=== PATIENT | female | born 1985 | race Caucasian/White ===

== ENCOUNTER 2017-04-01 15:00 | Emergency (ER) | payer OTHER ==
[2017-04-01 15:12] VITALS: BP 113/60
[2017-04-01] MEDS ORDERED: Lidocaine 2.5%/Prilocain 2.5%* 5 GM TUBE TOPICAL ONE (16:16)
[2017-04-01] MEDS ORDERED: Tetan/Diph/Pertus SYR(Tdap)* 0.5 ML SYR(BOOSTRIX) use SYR IM ONE (16:16)
--- NOTE | 2017-04-01 16:54 | RAD ---
INDICATION: Left index finger injury. TECHNIQUE: 3 views of the left index finger were obtained. FINDINGS: The bones are normal alignment. No fracture is seen. Joint spaces appear maintained. IMPRESSION: NO EVIDENCE FOR FRACTURE.
--- NOTE | 2017-04-01 19:03 | UC ---
Reggie Licea Aidan, scribed for Lexi Murray MD on 04/01/17 at 1627 . Hand/Wrist HPI - HPI Summary HPI Summary: 31 y/o female presents to the Urgent Care with an acute, constant, moderate, irregularly-shaped laceration to the left index finger that resulted from her crushing her finger on a chair or cabinet yesterday. Associated pain was reported to be 10/10 at the time, according to the patient. She is unaware of whether or not she broke the finger. Associated symptoms include mild swelling of the left index finger. She is unaware of when her last tetanus shot was. Dominant hand is right. - History Of Current Complaint Chief Complaint: UCLaceration Stated Complaint: FINGER LAC Time Seen by Provider: 04/01/17 16:02 Hx Obtained From: Patient Hx Last Menstrual Period: 01/22/17 ?: No Onset/Duration: Sudden Onset, Lasting Hours, Still Present Severity Initially: Moderate Severity Currently: Moderate Pain Intensity: 10 - per nurse's note Pain Scale Used: 0-10 Numeric Character Of Pain: Sharp Aggravating Factor(s): Other - unknown Alleviating: Other - unknown Associated Signs And Symptoms: Positive: Swelling - left index finger - Risk Factors Compartment Syndrome Risk Factors: Pain - Allergies/Home Medications Allergies/Adverse Reactions: Allergies Allergy/AdvReac Type Severity Reaction Status Date / Time No Known Allergies Allergy Verified 04/01/17 15:13 PMH/Surg Hx/FS Hx/Imm Hx Previously Healthy: Yes Respiratory History: Asthma Other History Of: Negative For: HIV, Hepatitis B, Hepatitis C, Anticoagulant Therapy - Surgical History Surgical History: Yes Surgery Procedure, Year, and Place: D&C. essure procedure - Family History Known Family History: Negative: Cardiac Disease, Hypertension, Diabetes - Social History Occupation: Employed Full-time Lives: Alone Alcohol Use: Rare Substance Use Type: None Smoking Status (MU): Never Smoked Tobacco Have You Smoked in the Last Year: No - Immunization History Most Recent Influenza Vaccination: UNK Most Recent Tetanus Shot: UTD Most Recent Pneumonia Vaccination: NONE Review of Systems Constitutional: Negative Skin: Other - laceration to left index finger with associated swelling Eyes: Negative ENT: Negative Respiratory: Negative Cardiovascular: Negative Gastrointestinal: Negative Genitourinary: Negative Motor: Negative Neurovascular: Negative Musculoskeletal: Negative Neurological: Negative Psychological: Negative All Other Systems Reviewed And Are Negative: Yes Physical Exam Triage Information Reviewed: Yes Appearance: Well-Nourished Vital Signs: Initial Vital Signs Temp 99.2 F 04/01/17 15:09 Pulse 104 04/01/17 15:09 Resp 18 04/01/17 15:09 BP 113/60 04/01/17 15:09 Pulse Ox 100 04/01/17 15:09 Vital Signs Reviewed: Yes Eye Exam: Normal ENT Exam: Normal ENT: Positive: Normal ENT inspection Respiratory Exam: Normal, Other - no dispnea, no tachypnea, normal respiratory rate Cardiovascular Exam: Normal, Other - good general skin color Cardiovascular: Positive: RRR, Brisk Capillary Refill Abdominal Exam: Normal Abdomen Description: Positive: Nontender, Soft Bowel Sounds: Positive: Present Musculoskeletal: Positive: Strength Intact, Other: - Generalized tenderness on the first proximal phalanx. Distal sensation present to light touch cap refill less than 2 seconds, able to bend and straighten finger but pain and swelling limit full flexion Neurological Exam: Normal, Other - nonfocal, grossly intact Neurological: Positive: Alert Psychological Exam: Normal Psychological: Positive: Age Appropriate Behavior Skin Exam: Other - 0.6cm by 0.2cm irregular shaped laceration, depth unclear, 0.2cm as visible, however, suspect deeper. Macerated area periwound, in the pattern of a bandaid. No active bleeding. Distal LT sensation present. CR good. Able to bend but painful 2/2 swelling. Diagnostics - Radiology FINGER X-RAY Xray Interpretation: No Acute Changes - IMPRESSION: No evidence for fracture Radiology Interpretation Completed By: Radiologist Hand/Wrist Course/Dx - Course Course Of Treatment: Ring was removed via emla and gauze. Ring had been contributing to some bottle neck. Xray noted, d/w pt. Splint and bandage applied by RN. Work noteuntil tuesday. Questions answered as posed. Reviewed coa / wound care with pt - Differential Dx/Diagnosis Provider Diagnoses: crush injury. finger laceration, non suturable. Boostrix here. Discharge - Discharge Plan Condition: Stable Disposition: HOME Discharge Disposition Comment: Please follow up with your primary care provider within 3 days. Prescriptions: Ibuprofen TAB* [Motrin TAB* 600 MG] 600 mg PO Q8H PRN #30 tab PRN Reason: Pain Iwtlrbxo-Mvzqkgektv-Oqhfbyqxa [Triple Antibiotic] 1 oin EX BID #1 tube Patient Education Materials: Diphtheria/Pertussis/Tetanus Vaccine (By injection ), Jammed Finger (ED), Laceration Without Closure (ED), Crush Injury (ED) Forms: *Work Release Referrals: Chely Martinez STEAM BOX OPERATOR [Primary Care Provider] - Additional Instructions: Splint as needed for comfort - ok to remove at night and to shower. Recommend use the splint for the next 3- 4 days, and then as needed afterwards. Cut - THIN layer of bacitracin 2x / day, light bandaid or bandage - do not "lock" the moisture in. Seek medical attention for worse or new problems. You had your tetanus booster today. The documentation as recorded by the Reggie chopra Aidan accurately reflects the service I personally performed and the decisions made by me, Lexi Murray MD.
== END 2017-04-01 17:42 | disposition home or self-care (01) ==
LOC: UCEAST 15:00
DX: S61.211A Laceration without foreign body of left index finger without damage to nail, initial encounter (principal); W23.0XXA Caught, crushed, jammed, or pinched between moving objects, initial encounter; Y93.9 Activity, unspecified; Y92.9 Unspecified place or not applicable; Z23 Encounter for immunization; J45.909 Unspecified asthma, uncomplicated
CPT/HCPCS: 73140; 90472; 90715; 99213; A9270-GY; G0463

== ENCOUNTER 2017-07-01 13:03 | Emergency (ER) | payer OTHER ==
[2017-07-01 14:05] VITALS: BP 115/69
[2017-07-01] MEDS ORDERED: Ketorolac INJ* 30 MG/ML 1 ML VIAL IM ONE (14:57)
--- NOTE | 2017-07-01 14:59 | UC ---
Truncal Trauma HPI - HPI Summary HPI Summary: pt reports that she has bilateral rib and side soreness and pain. 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 Denies trauma or injury Pt is requesting work note - History Of Current Complaint Chief Complaint: UCUpperExtremity Stated Complaint: BILATERAL RIB PAIN Time Seen by Provider: 07/01/17 14:52 Hx Obtained From: Patient Hx Last Menstrual Period: 05/03/17 essure ?: No Onset/Duration: Gradual Onset, Still Present Severity Initially: Mild Severity Currently: Mild Mechanism Of Injury: Unknown Aggravating Factor(s): Movement Alleviating factor(s): Rest Associated Signs And Symptoms: Positive: Negative - Allergies/Home Medications Allergies/Adverse Reactions: Allergies Allergy/AdvReac Type Severity Reaction Status Date / Time No Known Allergies Allergy Verified 07/01/17 14:05 PMH/Surg Hx/FS Hx/Imm Hx Previously Healthy: Yes Other History Of: Negative For: HIV, Hepatitis B, Hepatitis C, Anticoagulant Therapy - Surgical History Surgical History: Yes Surgery Procedure, Year, and Place: D&C. essure procedure - Family History Known Family History: Negative: Cardiac Disease, Hypertension, Diabetes - Social History Occupation: Employed Full-time Lives: With Family Alcohol Use: Rare Substance Use Type: None Smoking Status (MU): Never Smoked Tobacco Have You Smoked in the Last Year: No - Immunization History Most Recent Influenza Vaccination: no Most Recent Tetanus Shot: UTD Most Recent Pneumonia Vaccination: NONE Review of Systems Constitutional: Negative Skin: Bruising - left anterior lower ribs Eyes: Negative ENT: Negative Respiratory: Negative Cardiovascular: Negative Gastrointestinal: Negative Genitourinary: Negative Motor: Decreased ROM - ribs and rib cage Neurovascular: Negative Musculoskeletal: Arthralgia - ribs and rib cage, Myalgia Neurological: Negative Psychological: Negative Is Patient Immunocompromised?: No All Other Systems Reviewed And Are Negative: Yes Physical Exam Triage Information Reviewed: Yes Appearance: Well-Appearing Vital Signs: Initial Vital Signs Temp 98.7 F 07/01/17 14:01 Pulse 64 07/01/17 14:01 Resp 14 07/01/17 14:01 BP 115/69 07/01/17 14:01 Pulse Ox 100 07/01/17 14:01 Vital Signs Reviewed: Yes Eye Exam: Normal Neck exam: Normal Respiratory Exam: Normal Cardiovascular Exam: Normal Abdominal Exam: Normal Abdomen Description: Positive: Nontender, Soft Musculoskeletal: Positive: ROM Limited @ - ribs, Other: - dime size bruises on left lower anterior ribs, generalized tendernes of ribcage, no sweling, creipitus or significant bruising. Neurological Exam: Normal Psychological Exam: Normal Skin Exam: Other - two small bruises left anterior lower rib cage. ~ rib 7 & 8 Truncal Trauma Course/Dx - Differential Dx/Diagnosis Differential Diagnosis/HQI/PQRI: Other - costochondritis overuse syndrome Provider Diagnoses: overuse syndrome. tendonitis. rib bruise Discharge - Discharge Plan Condition: Stable Disposition: HOME Prescriptions: Ibuprofen TAB* [Motrin TAB* 800 MG] 800 mg PO Q8H PRN #15 tab PRN Reason: Pain Patient Education Materials: Rib Contusion (ED) Forms: *Work Release Referrals: Chely Martinez NP [Primary Care Provider] - If Needed (Please follow up with your PCP as needed or return to clinic. )
== END 2017-07-01 15:14 | disposition home or self-care (01) ==
LOC: UCCORT 13:03
DX: S20.219A Contusion of unspecified front wall of thorax, initial encounter (principal); X50.0XXA Overexertion from strenuous movement or load, initial encounter; M77.9 Enthesopathy, unspecified
CPT/HCPCS: 96372; 99212; G0463; J1885

== ENCOUNTER 2017-07-23 18:09 | Emergency (ER) | payer OTHER ==
[2017-07-23 20:35] VITALS: BP 114/78
[2017-07-23] MEDS ORDERED: Sulfamethox/Trimethoprim DS 800/160* TAB PO ONE (20:57)
--- NOTE | 2017-07-23 21:52 | UC ---
Abdominal Pain Female HPI - HPI Summary HPI Summary: Patient presents to the with CC of abdominal pain at a 1/10 which is in bilateral lower quadrants. She denies is concerned d/t no menstrual cycle x 2 months. Denies chance of . She states she had a "procedure" but is unable to tell me what kind. Denies any vaginal bleeding or spotting. Denies N/ C/D/V. Denies urinary symptoms including back pain. Denies fevers, sweats or chills. She states she has been feeling otherwise well. - History of Current Complaint Chief Complaint: UCAbdominalPain Stated Complaint: STOMACH ACHE Time Seen by Provider: 07/23/17 20:13 Hx Obtained From: Patient Hx Last Menstrual Period: 04/2017 ?: No Onset/Duration: Sudden Onset Timing: Constant Severity Initially: Mild Severity Currently: Mild Pain Intensity: 7 Pain Scale Used: 0-10 Numeric Location: Discrete At: RLQ, Discrete At: LLQ Radiates: No Character: Unable to describe Aggravating Factor(s): Nothing Alleviating Factor(s): Nothing Associated Signs and Symptoms: Positive: Negative - Risk Factors Ectopic Risk Factor: Maternal Age ^ 30 Ovarian Torsion Risk Factor: Reproductive Age Allergies/Adverse Reactions: Allergies Allergy/AdvReac Type Severity Reaction Status Date / Time No Known Allergies Allergy Verified 07/23/17 18:45 PMH/Surg Hx/FS Hx/Imm Hx Previously Healthy: Yes Other History Of: Negative For: HIV, Hepatitis B, Hepatitis C, Anticoagulant Therapy - Surgical History Surgical History: Yes Surgery Procedure, Year, and Place: D&C. essure procedure - Family History Known Family History: Positive: None Negative: Cardiac Disease, Hypertension, Diabetes - Social History Occupation: Unemployed Lives: With Family Alcohol Use: Rare Substance Use Type: None Smoking Status (MU): Never Smoked Tobacco Have You Smoked in the Last Year: No - Immunization History Most Recent Influenza Vaccination: no Most Recent Tetanus Shot: UTD Most Recent Pneumonia Vaccination: NONE Review of Systems Constitutional: Negative Skin: Negative Respiratory: Negative Cardiovascular: Negative Gastrointestinal: Abdominal Pain - 1/10 in lower quadrants bilaterally - but unable to describe Motor: Negative Neurovascular: Negative Neurological: Negative Psychological: Negative Is Patient Immunocompromised?: No All Other Systems Reviewed And Are Negative: Yes Physical Exam Triage Information Reviewed: Yes Appearance: Well-Appearing, Well-Nourished Vital Signs: Initial Vital Signs Temp 97.8 F 07/23/17 18:42 Pulse 74 07/23/17 18:42 Resp 16 07/23/17 18:42 BP 112/67 07/23/17 18:42 Pulse Ox 100 07/23/17 18:42 Vital Signs Reviewed: Yes Eye Exam: Normal Eyes: Positive: Conjunctiva Clear Neck exam: Normal Neck: Positive: Supple, No Lymphadenopathy Respiratory Exam: Normal Respiratory: Positive: Chest non-tender Cardiovascular Exam: Normal Cardiovascular: Positive: RRR Musculoskeletal Exam: Normal Musculoskeletal: Positive: Strength Intact Neurological Exam: Normal Neurological: Positive: Alert, Muscle Tone Normal Psychological: Positive: Normal Response To Family Skin Exam: Normal Abd Pain Female Course/Dx - Course Course Of Treatment: Discussed with patient treatment options. UA with +3 leuks. She denies any symptoms currently, but is only concerned about no menstruation x 2 months. test negative. Denies urinary symptoms. Placed on bactrim for UTI and referred for OBGYN. Provider does not feel it necessary to perform more imaging, labs, etc d/t no symptoms currently. Patient agrees. - Differential Dx/Diagnosis Differential Diagnosis: Appendicitis, Bowel Obstruction, Constipation, Ovarian Cyst, , Urinary Tract Infection Provider Diagnoses: UTI Discharge - Discharge Plan Condition: Stable Disposition: HOME Prescriptions: Sulfamethox/Trimethoprim DS* [Bactrim DS 800/160 TAB*] 1 tab PO BID #10 tab MDD 2 Patient Education Materials: Urinary Tract Infection in Women (ED) Referrals: Rios Esquivel MD [Medical Doctor] - Chely Martinez NP [Primary Care Provider] - Additional Instructions: Follow up with your PCP Follow up with OBGYN immediately - I have given you a referral - you need to call on Tuesday morning to make an appt As discussed, you have a UTI Dx. Urinary Tract Infection Drink plenty of fluids. Supplement with cranberry or islas juice. You may also take an over the counter cranberry supplement. If you have any questions about this, you may ask your pharmacist. If your symptoms have not improved in 1-2 days, if you develop fever, sweats or chills, please go to your emergency room, or call your PCP. Antibiotics were prescribed to you. Please take as directed. Supplement with over the counter probiotics on the opposite schedule of your antibiotic to prevent secondary infections. Do not take together as they may counteract each other. If you develop worsening abdominal pain - you need to go to the Emergency Room immediately
--- NOTE | 2017-07-25 17:21 | UC ---
Progress - Progress Note Progress Note: call patient urine culture does not support dx of UTI--should symptoms continue please have patient follow with pcp or return --may stop BActrim
== END 2017-07-23 21:17 | disposition home or self-care (01) ==
LOC: UCEAST 18:09
DX: R10.31 Right lower quadrant pain (principal); Z32.02 Encounter for pregnancy test, result negative
CPT/HCPCS: 81003; 84702; 87086; 99212; A9270-GY; G0463

== ENCOUNTER 2017-09-06 14:15 | Emergency (ER) | payer OTHER ==
[2017-09-06 16:06] VITALS: BP 122/56
[2017-09-06] MEDS ORDERED: Albuterol 2.5 MG/3 ML NEB.SOL* (0.083%) INH ONE (16:08)
--- NOTE | 2017-09-06 16:38 | UC ---
Respiratory Complaint HPI - HPI Summary HPI Summary: 32 y/o female with h/o asthma, no current medications, has exacerbations with colds, cold weather. had albuterol in the past, however did not have insurance and has not had a recent albuterol inhaler given. patient states for past few days has had increased sinus congestion, sore throat , mild ear pain, chest congestion and recent increased labored breathing x 1 day. no medications at home, no recent abx use - History of Current Complaint Hx Obtained From: Patient Hx Last Menstrual Period: 08/26/17 ?: No Onset/Duration: Sudden Onset, Lasting Days, Worse Since - worsening daily Timing: Constant Severity Initially: Mild Severity Currently: Moderate <Lexi Odom - Last Filed: 09/06/17 16:47> <Alyssa Marquez - Last Filed: 09/06/17 17:57> - History of Current Complaint Chief Complaint: UCRespiratory Stated Complaint: COUGH/CHEST CONGESTION Time Seen by Provider: 09/06/17 16:25 - Allergies/Home Medications Allergies/Adverse Reactions: Allergies Allergy/AdvReac Type Severity Reaction Status Date / Time No Known Allergies Allergy Verified 09/06/17 16:03 PMH/Surg Hx/FS Hx/Imm Hx Previously Healthy: No - h/o asthma Other History Of: Negative For: HIV, Hepatitis B, Hepatitis C, Anticoagulant Therapy - Surgical History Surgical History: Yes Surgery Procedure, Year, and Place: D&C. essure procedure - Family History Known Family History: Positive: None Negative: Cardiac Disease, Hypertension, Diabetes - Social History Alcohol Use: Rare Substance Use Type: None Smoking Status (MU): Never Smoked Tobacco Have You Smoked in the Last Year: No - Immunization History Most Recent Influenza Vaccination: no Most Recent Tetanus Shot: UTD Most Recent Pneumonia Vaccination: NONE <Lexi Odom - Last Filed: 09/06/17 16:47> Review of Systems Constitutional: Negative ENT: Sore Throat, Ear Ache, Sinus Congestion, Sinus Pain/Tenderness Respiratory: Shortness Of Breath Neurological: Headache, Weakness Is Patient Immunocompromised?: No All Other Systems Reviewed And Are Negative: Yes <Lexi Odom - Last Filed: 09/06/17 16:47> Physical Exam Triage Information Reviewed: Yes Appearance: No Pain Distress, Well-Nourished, Ill-Appearing - mild Vital Signs: Initial Vital Signs Temp 98.3 F 09/06/17 16:03 Pulse 69 09/06/17 16:03 Resp 18 09/06/17 16:03 BP 122/56 09/06/17 16:03 Pulse Ox 99 09/06/17 16:03 Eyes: Positive: Conjunctiva Clear ENT: Positive: Hearing grossly normal, Pharyngeal erythema - mild, Nasal congestion, TM dull, TM red - + f;luid behind TM b/l, Sinus tenderness, Uvula midline. Negative: TMs normal, Tonsillar swelling, Tonsillar exudate, Trismus, Muffled voice, Hoarse voice, Dental tenderness Neck: Positive: Supple, Nontender, Enlarged Nodes @ - mild LAD submand no posterior cervical LAD Respiratory: Positive: Chest non-tender, Normal breath sounds, No respiratory distress, No accessory muscle use. Negative: Respiratory distress, Decreased breath sounds, Accessory muscle use, Crackles, Rhonchi, Stridor, Wheezing - examined after neb treatment Cardiovascular: Positive: RRR, No Murmur, Pulses Normal Abdomen Description: Positive: Nontender, No Organomegaly, Soft, Bruit, CVA Tenderness (R), CVA Tenderness (L) Neurological Exam: Normal Psychological Exam: Normal Skin Exam: Normal <Lexi Odom - Last Filed: 09/06/17 16:47> Vital Signs: Initial Vital Signs Temp 98.3 F 09/06/17 16:03 Pulse 69 09/06/17 16:03 Resp 18 09/06/17 16:03 BP 122/56 09/06/17 16:03 Pulse Ox 99 09/06/17 16:03 <Alyssa Marquez - Last Filed: 09/06/17 17:57> Diagnostic Evaluation - Laboratory O2 Sat by Pulse Oximetry: 99 <Lexi Odom - Last Filed: 09/06/17 16:47> Respiratory Course/Dx - Course Course Of Treatment: Neb treatment in UC- patient states didn't have much effect , no resp distress currently, ABX, neb, alb, given, follow up with PCP for asthma treatment over winter. - Differential Dx/Diagnosis Differential Diagnosis/HQI/PQRI: Aspiration, Asthma, Bronchitis Provider Diagnoses: sinusitis, asthma exacerbation <Lexi Odom - Last Filed: 09/06/17 16:47> Discharge <Lexi Odom - Last Filed: 09/06/17 16:47> <Alyssa Marquez - Last Filed: 09/06/17 17:57> - Discharge Plan Condition: Fair Disposition: HOME Prescriptions: Albuterol HFA INHALER* [Ventolin HFA Inhaler*] 1 - 2 puff INH Q4H PRN #1 mdi PRN Reason: shortness of breath Albuterol/Ipratropium NEB.REJI* [Duoneb (Albuterol 2.5 MG/Ipratropium 0.5 MG)] 1 neb INH Q4H PRN #30 neb.soln PRN Reason: shortness of breath, wheezing Amoxicillin/Clavulanate TAB* [Augmentin TAB 875*] 875 mg PO BID #14 tab Nebulizers [Nebulizer] 1 unit INH Q4H PRN #1 unit PRN Reason: shortness of breath predniSONE TAB* [Deltasone TAB*] 40 mg PO DAILY #5 tab Patient Education Materials: Albuterol (By breathing), Asthma (ED), Sinusitis ( ED) Referrals: Chely Martinez THREAD WINDER [Primary Care Provider] - Additional Instructions: - Nebulizer as needed every 4 hours for wheezing, shortness of breath- do NOT take with albuterol inhaler - Steroids/ prednisone to decrease inflammation - albuterol rescue inhaler as needed every 4 hours - augmentin twice daily x 7 days - Follow up with primary physician within 7 days for evaluation for asthma treatment - GO to ER with increased shortness of breath, chest pain, fever, chills. Attestation Statement User Type: Provider - I was available for consult. This patient was seen by the [facility]. The patient was not presented to, seen by, or examined by me. -Ginger <Alyssa Marquez - Last Filed: 09/06/17 17:57>
== END 2017-09-06 16:55 | disposition home or self-care (01) ==
LOC: UCEAST 14:15
DX: J32.9 Chronic sinusitis, unspecified (principal); J45.901 Unspecified asthma with (acute) exacerbation
CPT/HCPCS: 99212; G0463

== ENCOUNTER 2018-01-13 15:15 | Emergency (ER) | payer OTHER ==
[2018-01-13 15:48] VITALS: BP 119/82
--- NOTE | 2018-01-13 16:40 | RAD ---
HISTORY: Back pain, subacute trauma COMPARISONS: CT dated July 05, 2016 VIEWS: 3 , Frontal, lateral, and coned-down lateral sacral views of the lumbar spine FINDINGS: ALIGNMENT: The alignment is normal. VERTEBRAL BODIES: The vertebral body heights are normal. The interpedicular distances are normal. JOINTS: The facet joints are normal. INTERVERTEBRAL DISCS: The intervertebral disc heights are normal. SOFT TISSUE: Unremarkable. OTHER: The pelvis is unremarkable. The lung bases are clear. Contraceptive inserts are noted. IMPRESSION: UNREMARKABLE RADIOGRAPHS OF THE LUMBAR SPINE
--- NOTE | 2018-01-13 16:41 | RAD ---
HISTORY: Back pain, subacute trauma COMPARISONS: CT dated July 05, 2016 VIEWS: 4, Frontal and lateral views of the thoracic spine. FINDINGS: ALIGNMENT: The alignment is normal. VERTEBRAL BODIES: The vertebral body heights are normal. The interpedicular distances are normal. JOINTS: Unremarkable. INTERVERTEBRAL DISCS: The intervertebral disc heights are normal. SOFT TISSUE: Unremarkable OTHER: The visualized lungs are clear. IMPRESSION: UNREMARKABLE RADIOGRAPHS OF THE THORACIC SPINE
--- NOTE | 2018-01-13 21:33 | UC ---
Darshan Licea Nikita, scribed for Ang Clayton MD on 01/13/18 at 1601 . Back Pain HPI - HPI Summary HPI Summary: This patient is a 32 year old F presenting to [facility] with a chief complaint of upper and lower back pain since 3 days ago. The patient fell backwards after accidentally missing a step at home. The patient rates the pain 6/10 in severity. Symptoms aggravated by nothing. Symptoms alleviated minimally by Ibuprofen. Patient reports she is able to ambulate with no significant abnormalities. Patient denies urinary or fecal dysfunction. - History of Current Complaint Chief Complaint: UCBackPain Stated Complaint: BACK INJURY Time Seen by Provider: 01/13/18 16:00 Hx Obtained From: Patient Hx Last Menstrual Period: 3 wks ago Onset/Duration: Sudden Onset, Lasting Days, Still Present Timing: Constant Severity Initially: Severe Severity Currently: Severe Pain Intensity: 10 Pain Scale Used: 0-10 Numeric Back Pain: Is Discrete @ - upper and lower back Aggravating Factor(s): Nothing Alleviating Factor(s): Nothing Associated Signs And Symptoms: Positive: Other - Patient reports she is able to ambulate. Patient denies urinary or fecal dysfunction. - Allergies/Home Medications Allergies/Adverse Reactions: Allergies Allergy/AdvReac Type Severity Reaction Status Date / Time No Known Allergies Allergy Verified 01/13/18 15:48 PMH/Surg Hx/FS Hx/Imm Hx Endocrine History: Other Other Endocrine History: NO DM Cardiovascular History: Other Other Cardiovascular History: NO HTN, CAD Respiratory History: Asthma Other History Of: Negative For: HIV, Hepatitis B, Hepatitis C, Anticoagulant Therapy - Surgical History Surgical History: Yes Surgery Procedure, Year, and Place: D&C. essure procedure - Family History Known Family History: Positive: Diabetes Negative: Cardiac Disease, Hypertension - Social History Alcohol Use: Rare Substance Use Type: None Smoking Status (MU): Never Smoked Tobacco Have You Smoked in the Last Year: No - Immunization History Most Recent Influenza Vaccination: no Most Recent Tetanus Shot: UTD Most Recent Pneumonia Vaccination: NONE Review of Systems Gastrointestinal: Other - denies fecal dysfunction Genitourinary: Negative Musculoskeletal: Other: - upper and lower back pain All Other Systems Reviewed And Are Negative: Yes Physical Exam - Summary Physical Exam Summary: VITAL SIGNS: Reviewed. GENERAL: ~Patient is a well-developed and nourished FEMALE who is lying comfortable in the stretcher. ~Patient is not in any acute respiratory distress. HEAD AND FACE: Normocephalic EYES: PERRLA, EOMI x 2. EARS: Hearing grossly intact. MOUTH: Oropharynx within normal limits. NECK: Supple, trachea is midline, no adenopathy, no JVD, no carotid bruit. CHEST: Symmetric, no tenderness at palpation LUNGS: Clear to auscultation bilaterally. No wheezing or crackles. CVS: Regular rate and rhythm, S1 and S2 present, no murmurs or gallops appreciated. ABDOMEN: Soft, non-tender. Bowel sounds are normal. No abdominal abnormal pulsations. EXTREMITIES: Full ROM in all major joints, no edema, no cyanosis or clubbing. NEURO: Alert and oriented x 3. No acute neurological deficits. Speech is normal and follows commands. SKIN: Dry and warm No vertebral tenderness, straight leg test is negative, paraspinal muscle tenderness in thoracic and lumbar spine bilaterally. The patient is ambulating with no significant abnormalities. Triage Information Reviewed: Yes Vital Signs: Initial Vital Signs Temp 99.6 F 01/13/18 15:45 Pulse 83 01/13/18 15:45 Resp 18 01/13/18 15:45 BP 119/82 01/13/18 15:45 Pulse Ox 100 01/13/18 15:45 Diagnostics - Radiology Thoracic Spine XR Radiology Interpretation Completed By: Radiologist - UNREMARKABLE RADIOGRAPHS OF THE THORACIC SPINE. [facility] physician has reviewed this radiology report. Lumbar Spine XR Radiology Interpretation Completed By: Radiologist - UNREMARKABLE RADIOGRAPHS OF THE LUMBAR SPINE. [facility] physcian has reviewed this radiology report. Back Pain Course/Dx - Course Course Of Treatment: XR reveals UNREMARKABLE RADIOGRAPHS OF THE LUMBAR SPINE. XR reveals UNREMARKABLE RADIOGRAPHS OF THE THORACIC SPINE. I discussed all the findings and test results with the patient. Patient was instructed to return to the urgent care or go to ER immediately if any of the symptoms return or worsens. Plan of care was discussed with the patient, and patient understands and agrees. All questions were answered to patient satisfaction. There were no further complaints or concerns. - Differential Dx/Diagnosis Differential Diagnosis/HQI/PQRI: Other - back pain Provider Diagnoses: back pain Discharge - Sign-Out/Discharge Documenting (check all that apply): Discharge - Discharge Plan Condition: Stable Disposition: HOME Prescriptions: Cyclobenzaprine TAB* [Flexeril 10 MG TAB*] 10 mg PO TID PRN #12 tab PRN Reason: Pain Hydrocodone/Acetaminophen [[place] 5-325 mg] 1 tab PO Q6H #12 tab MDD 4 Patient Education Materials: Acute Low Back Pain (ED), Arthralgia (ED) Referrals: Chely Martinez MUSHRO[facility] FARMER [Primary Care Provider] - Additional Instructions: Take medications as instructed Increase your fluid intake Return to the UC if symptoms worsen The documentation as recorded by the Darshan chopra Nikita accurately reflects the service I personally performed and the decisions made by , Ang Clayton MD.
== END 2018-01-13 16:55 | disposition home or self-care (01) ==
LOC: UCEAST 15:15
DX: M54.6 Pain in thoracic spine (principal); Z32.02 Encounter for pregnancy test, result negative; J45.909 Unspecified asthma, uncomplicated
CPT/HCPCS: 72070; 72100; 81003; 84702; 87086; 99212; G0463

== ENCOUNTER 2018-01-27 12:48 | Emergency (ER) | payer OTHER ==
[2018-01-27 12:56] VITALS: BP 131/86
[2018-01-27] MEDS ORDERED: Albuterol 2.5 MG/3 ML NEB.SOL* (0.083%) INH ONE (13:51)
[2018-01-27] MEDS ORDERED: Ipratropium 0.5MG/2.5ML NEB* 0.5 MG/2.5 ML NEB.SOLN INH ONE (13:51)
--- NOTE | 2018-01-27 15:06 | UC ---
Alfie Licea Gabriel, scribed for Emilia Olguin DO on 01/27/18 at 1350 . FLU HPI - HPI Summary HPI Summary: This patient is a 32 year old F presenting to [facility] with a chief complaint of flu like illness that began 01-24-18. The patient rates the pain 9/10 in severity. Patient reports fever, cough, ABD pain, ear pain, diaphoresis, myalgia , WEBER, sore throat, and nasal congestion. Patient denies v/d, dysuria, rashes, and joint pain. LNMP was in the last week of december. - History of Current Complaint Chief Complaint: UCRespiratory Stated Complaint: SORE THROAT, EAR PAIN Hx Obtained From: Patient Hx Last Menstrual Period: 02/20/18 Onset/Duration: Lasting Days - 3, Still Present Severity Currently: Severe Severity Initially: Severe Pain Intensity: 9 Pain Scale Used: 0-10 Numeric Associated Signs & Symptoms: Positive: Fever, Myalgia, Cough, Sore Throat, Nasal Congestion, Headache. Negative: Vomiting, Diarrhea - Allergy/Home Medications Allergies/Adverse Reactions: Allergies Allergy/AdvReac Type Severity Reaction Status Date / Time No Known Allergies Allergy Verified 01/27/18 12:57 PMH/Surg Hx/FS Hx/Imm Hx Respiratory History: Asthma Other History Of: Negative For: HIV, Hepatitis B, Hepatitis C, Anticoagulant Therapy - Surgical History Surgical History: Yes Surgery Procedure, Year, and Place: D&C. E-sure procedure - Family History Known Family History: Positive: Diabetes Negative: Cardiac Disease, Hypertension, Respiratory Disease, Seizure Disorder - Social History Alcohol Use: Rare Substance Use Type: None Smoking Status (MU): Never Smoked Tobacco Have You Smoked in the Last Year: No - Immunization History Most Recent Influenza Vaccination: no Most Recent Tetanus Shot: UTD Most Recent Pneumonia Vaccination: NONE Review of Systems Constitutional: Fever, Other - sweating ENT: Sore Throat, Ear Ache, Sinus Congestion Respiratory: Cough Gastrointestinal: Abdominal Pain Musculoskeletal: Myalgia Neurological: Headache All Other Systems Reviewed And Are Negative: Yes Physical Exam - Summary Physical Exam Summary: Appearance: mildly ill apearing No Pain Distress, Well-Nourished Eyes: conjunctiva clear, no discharge ENT: Hearing grossly normal, no muffled/hoarse voice. TMs normal, negative tonsillar swelling, negative tonsillar exudate, negative trismus. Pharyngeal erythema. sinus tenderness Neck: Normal, Supple Respiratory/Lung Sounds: wheezes heard No respiratory distress, No accessory muscle use Cardiovascular: RRR, No murmur Musculoskeletal: Normal Neurological: Alert, muscle tone normal Psychiatric:Normal, age appropriate behavior Skin: Normal, Warm, Dry, Normal color Triage Information Reviewed: Yes Vital Signs: Initial Vital Signs Temp 99.0 F 01/27/18 12:53 Pulse 120 01/27/18 12:53 Resp 18 01/27/18 12:53 BP 131/86 01/27/18 12:53 Pulse Ox 96 01/27/18 12:53 Vital Signs Reviewed: Yes Re-Evaluation - Re-Evaluation First Eval Re-Evaluation Time: 14:37 Change: Improved Comment: Pt has improved after the neb. Flu Course/Dx - Course Course Of Treatment: This patient is a 32 year old F presenting to [facility] with a chief complaint of flu like illness that began 01-24-18. The patient rates the pain 9/10 in severity. Patient reports fever, cough, ABD pain, ear pain, diaphoresis, myalgia, WEBER, sore throat, and nasal congestion. Patient denies v/d , dysuria, rashes, and joint pain. Pt was negative for strep throat. In the [facility] course the patient was given albuterol neb. Patient will be discharged with prescription for magic mouthwash, tessalon, albuterol inhaler, mucinex, and robitussin and follow up from PCP. The patient is agreeable with this plan. Medications reviewed. High blood pressure noted due to patients condition - Differential Dx/Diagnosis Provider Diagnoses: Asthma, sinusitis, and acute bronchitis Discharge - Sign-Out/Discharge Documenting (check all that apply): Discharge - Discharge Plan Condition: Stable Disposition: HOME Prescriptions: Albuterol HFA INHALER* [Ventolin HFA Inhaler*] 2 puff INH Q4H PRN #1 mdi PRN Reason: Sob/Wheezing Azithromycin TAB* [Zithromax TAB (Z-LIT) 250 mg #6 tabs] 0 mg PO .SEE INSTRUCTIONS #6 tab Benzonatate CAP* [Tessalon 100 MG CAP*] 100 mg PO TID #30 cap guaiFENesin ER TAB [Mucinex*] 600 mg PO BID PRN #1 box PRN Reason: Cough guaiFENesin/CODIEN 100MG-10MG* [Robitussin AC 100Mg-10Mg*] 5 - 10 ml PO Q4H PRN #100 udc MDD 10ml PRN Reason: Cough Magic Mouth Was-JAMES/MAAL/LIDO* 5 ml SWISH SPIT QID PRN #100 ml PRN Reason: Pain predniSONE TAB* [Deltasone TAB*] 40 mg PO DAILY #10 tab Patient Education Materials: Acute Bronchitis (ED), Asthma (ED), Sinusitis (ED) Forms: *Work Release Referrals: Chely Martinez DREDGEMASTER [Primary Care Provider] - If Needed Additional Instructions: TRY USING THE NETTI POT IN THE MORNINGS DISCUSSED. YOU MUST ALWAYS USE CLEAN WATER. REMEMBER, POSTURE IS AN IMPORTANT FACTOR IN SINUS DRAINAGE. MOVE YOUR NECK, BREATHE. INHALED BRONCHODILATORS: You have received a prescription for an inhaled bronchodilator -- a medication which stimulates the airways in the lung to dilate. This improves the flow of air in asthma, bronchitis, and emphysema. These medicines have some similarity to adrenaline, and can cause similar side effects: shakiness, racing heart, and a sense of nervousness. These side effects decrease with time. Contact your doctor if these side effects are severe. Do not over-use the medicine. Too-frequent use of the inhaler may make it ineffective. Call your doctor if the inhaler is not controlling your symptoms at the prescribed doses. COUGH-SUPPRESSANT & EXPECTORANT MEDICATION: You are to use a cough medication as needed for relief of symptoms. This medicine is a combination of an expectorant (to make the mucous thinner and more easily "coughed up") and a cough suppressant (to reduce the frequency of coughing). The cough-suppressant medicine is related to narcotics. You may experience mild nausea and sleepiness. Some patients who are very sensitive to narcotics may have stomach pain from this medicine. Taking the medicine with food reduces these side effects. Do not drive or work with machinery until you know how this medicine affects you. The expectorant should have no side effects. Iodine-containing expectorants (such as organidin) should not be taken by persons with active thyroid disease unless approved by your doctor. Call the doctor if you develop shortness of breath, hives, rash, itching, lightheadedness, or severe nausea and vomiting. EXPECTORANT MEDICATION: An expectorant medicine has been prescribed. This type of drug makes mucous thinner, helping the sinuses, nose, and bronchial tubes to remain free of pus and mucous. Expectorants make a cough less severe and more comfortable, and help infected sinuses drain. In general, antihistamines defeat the purpose of the expectorant by making mucous thicker. They should be avoided unless specifically recommended by your physician. TESSALON PERLES: You have received a prescription for Tessalon Perles (benzonatate). This is a non-narcotic medicine for relief of cough. It usually works in about 15- 20 minutes and lasts around four hours. Tessalon Perles should be swallowed. They should not be chewed or dissolved in the mouth (this can produce temporary numbing of the mouth and choking can occur). If you develop any adverse effects such as wheezing, shortness of breath, hives, rash, itching, or lightheadedness, please return at once. DISCUSSED, TRY MAGIC MOUTHWASH TO CONTROL PAIN PRIOR TO EATING. AZITHROMYCIN: Azithromycin (Zithromax) is a broad spectrum antibiotic in the same class as erythromycin. It can treat a variety of bacterial infections, but is most frequently used for respiratory infections. Azithromycin is extremely long-lasting. It accumulates in body tissues and continues to kill bacteria for many days. In order to improve absorption, Azithromycin should be taken at least one hour before or two hours after a meal. It does not have the same strong tendency to upset the stomach as erythromycin and is usually very well tolerated. Patients who have had a rash or other true allergic reactions to erythromycin should not take this medication. Call if you develop gastrointestinal distress, severe diarrhea, rash, hives, itching, or shortness of breath. ANYTIME YOU TAKE AN ANTIBIOTIC, IT IS IMPORTANT TO REPLENISH THE BODY'S SUPPLY OF "GOOD BACTERIA." YOU CAN GET GOOD BACTERIA FROM HIGH QUALITY CULTURED FOODS SUCH LOCAL YOGURT, SOUR KRAUT, DOT MICHELLE, NATURALLY FERMENTED PICKLES AND PROBIOTIC DRINKS. YOU CAN ALSO GET GOOD BACTERIA FROM A PROBIOTIC SUPPLEMENT. - Billing Disposition and Condition Condition: STABLE Disposition: HOME The documentation as recorded by the Alfie chopra Gabriel accurately reflects the service I personally performed and the decisions made by , Emilia Olguin DO.
== END 2018-01-27 14:53 | disposition home or self-care (01) ==
LOC: UCEAST 12:48
DX: J45.909 Unspecified asthma, uncomplicated (principal); J32.9 Chronic sinusitis, unspecified; J20.9 Acute bronchitis, unspecified
CPT/HCPCS: 87651; 99212; G0463

== ENCOUNTER 2019-04-16 10:05 | Emergency (ER) | payer OTHER ==
[2019-04-16 10:40] VITALS: BP 106/67
[2019-04-16] MEDS ORDERED: Albuterol 2.5 MG/3 ML NEB.SOL* (0.083%) INH ONE (10:54)
--- NOTE | 2019-04-16 11:00 | UC ---
Respiratory Complaint HPI - HPI Summary HPI Summary: 33-year-old female comes in with a chief complaint of cough chest congestion wheezing. Symptoms started about 3 days ago. With recent move she's lost her albuterol inhaler and her nebulizer machine. She does so short of breath. She does have rhinorrhea. Laying down makes the cough worse. She's not had any [id number] medications. - History of Current Complaint Chief Complaint: UCRespiratory Stated Complaint: COUGH HISTORY OF ASTHMA CONGESTION Time Seen by Provider: 04/16/19 10:44 Hx Last Menstrual Period: 03/03/19 Pain Intensity: 10 - Allergies/Home Medications Allergies/Adverse Reactions: Allergies Allergy/AdvReac Type Severity Reaction Status Date / Time No Known Allergies Allergy Verified 04/16/19 10:34 PMH/Surg Hx/FS Hx/Imm Hx Previously Healthy: Yes Respiratory History: Asthma Other History Of: Negative For: HIV, Hepatitis B, Hepatitis C, Anticoagulant Therapy - Surgical History Surgical History: Yes Surgery Procedure, Year, and Place: D&C. E-sure procedure - Family History Known Family History: Positive: None, Diabetes Negative: Cardiac Disease, Hypertension, Respiratory Disease, Seizure Disorder - Social History Alcohol Use: Rare Substance Use Type: None Smoking Status (MU): Never Smoked Tobacco Have You Smoked in the Last Year: No - Immunization History Most Recent Influenza Vaccination: no Most Recent Tetanus Shot: UTD Most Recent Pneumonia Vaccination: NONE Review of Systems All Other Systems Reviewed And Are Negative: Yes Constitutional: Positive: Negative Skin: Positive: Negative Eyes: Positive: Negative ENT: Positive: Sore Throat, Nasal Discharge, Sinus Congestion Respiratory: Positive: Shortness Of Breath, Cough, Other - SEE HPI Cardiovascular: Positive: Negative Gastrointestinal: Positive: Negative Motor: Positive: Negative Neurovascular: Positive: Negative Musculoskeletal: Positive: Negative Neurological: Positive: Negative Psychological: Positive: Negative Is Patient Immunocompromised?: No Physical Exam Triage Information Reviewed: Yes Appearance: No Pain Distress, Well-Nourished, Ill-Appearing - MILD Vital Signs: Initial Vital Signs Temp 98.4 F 04/16/19 10:35 Pulse 88 04/16/19 10:35 Resp 17 04/16/19 10:35 BP 106/67 04/16/19 10:35 Pulse Ox 99 04/16/19 10:35 Vital Signs Reviewed: Yes Eye Exam: Normal Eyes: Positive: Conjunctiva Clear ENT: Positive: Pharyngeal erythema, Nasal congestion, Nasal drainage, TMs normal Neck: Positive: Supple Respiratory: Positive: No respiratory distress, Wheezing Cardiovascular: Positive: RRR Musculoskeletal Exam: Normal Musculoskeletal: Positive: Strength Intact, ROM Intact Neurological: Positive: Alert, Muscle Tone Normal Psychological Exam: Normal Psychological: Positive: Age Appropriate Behavior Skin Exam: Normal Respiratory Course/Dx - Course Course Of Treatment: DISCUSSED VIRAL VERSES BACTERIAL INFECTION AND THE ROLE OF ANTIBIOTICS. THE PATIENT PREFERS TO BE ON ANTIBIOTICS AT THIS TIME. - Differential Dx/Diagnosis Provider Diagnosis: Bronchitis, Asthma Discharge - Sign-Out/Discharge Documenting (check all that apply): Patient Departure All imaging exams completed and their final reports reviewed: No Studies - Discharge Plan Condition: Stable Disposition: HOME Prescriptions: Albuterol 2.5MG/3ML (0.083%)* [Ventolin 2.5 MG/3 ML NEB.REJI*] 2.5 mg INH Q4H PRN #30 neb.reji PRN Reason: Wheezing Albuterol HFA INHALER* [Ventolin HFA Inhaler*] 2 puff INH Q4H PRN #1 mdi PRN Reason: Wheezing Azithromyxin LIT (NF) [Z-Lit (Zithromax) 250 mg tabs #6] 2 tab PO .TODAY, THEN 1 DAILY #6 tab Benzonatate CAP* [Tessalon 100 MG CAP*] 100 mg PO TID PRN #20 cap PRN Reason: Cough GuaiFENesin DM* [Robitussin DM*] 10 ml PO Q4H PRN #180 ml PRN Reason: Cough Patient Education Materials: Asthma (ED), Acute Bronchitis (ED) Forms: *Work Release Referrals: [facility] PHYSICIAN REFERRAL [Outside] Additional Instructions: FOLLOW UP WITH YOUR DOCTOR IF NOT COMPLETELY IMPROVED. GET RECHECKED SOONER IF YOUR CONDITION WORSENS OR ANY QUESTIONS OR CONCERNS. - Billing Disposition and Condition Condition: STABLE Disposition: Home
== END 2019-04-16 11:22 | disposition home or self-care (01) ==
LOC: UCCORT 10:05
DX: J40 Bronchitis, not specified as acute or chronic (principal); R05 Cough
CPT/HCPCS: 99212; G0463

== ENCOUNTER 2019-06-30 09:02 | Emergency (ER) | payer OTHER ==
[2019-06-30 09:25] VITALS: BP 107/67
--- NOTE | 2019-06-30 10:19 | UC ---
Throat Pain/Nasal Sebastian HPI - HPI Summary HPI Summary: Pt presents with c/o sudden onset ST, bilateral ear ache, "stomach ache", generalized malaise X 1 day. - History of Current Complaint Chief Complaint: UCRespiratory Stated Complaint: SORE THROAT RIGHT EAR HEADACHE STOMACH Time Seen by Provider: 06/30/19 10:08 Hx Obtained From: Patient Hx Last Menstrual Period: end may ?: No Onset/Duration: Sudden Onset, Still Present, Worse Since Severity: Moderate Pain Intensity: 9 Cough: None Associated Signs & Symptoms: Positive: Dysphagia - Epiglottits Risk Factors Epiglottis Risk Factors: Sudden Onset - Allergies/Home Medications Allergies/Adverse Reactions: Allergies Allergy/AdvReac Type Severity Reaction Status Date / Time No Known Allergies Allergy Verified 06/30/19 09:21 PMH/Surg Hx/FS Hx/Imm Hx Previously Healthy: Yes Other History Of: Negative For: HIV, Hepatitis B, Hepatitis C, Anticoagulant Therapy - Surgical History Surgical History: Yes Surgery Procedure, Year, and Place: D&C. E-sure procedure - Family History Known Family History: Positive: None, Diabetes Negative: Cardiac Disease, Hypertension, Respiratory Disease, Seizure Disorder - Social History Occupation: Employed Full-time Lives: With Family Alcohol Use: Rare Substance Use Type: None Smoking Status (MU): Never Smoked Tobacco Have You Smoked in the Last Year: No - Immunization History Most Recent Influenza Vaccination: no Most Recent Tetanus Shot: UTD Most Recent Pneumonia Vaccination: NONE Vaccination Up to Date: Yes Review of Systems All Other Systems Reviewed And Are Negative: Yes Constitutional: Positive: Chills, Fatigue Skin: Positive: Negative Eyes: Positive: Negative ENT: Positive: Sore Throat, Sinus Congestion Respiratory: Positive: Negative Cardiovascular: Positive: Negative Gastrointestinal: Positive: Abdominal Pain Genitourinary: Positive: Negative Motor: Positive: Negative Neurovascular: Positive: Negative Musculoskeletal: Positive: Myalgia Neurological: Positive: Negative Psychological: Positive: Negative Is Patient Immunocompromised?: No Physical Exam Triage Information Reviewed: Yes Appearance: Ill-Appearing Vital Signs: Initial Vital Signs Temp 97.6 F 06/30/19 09:22 Pulse 68 06/30/19 09:22 Resp 16 06/30/19 09:22 BP 107/67 06/30/19 09:22 Pulse Ox 99 06/30/19 09:22 Vital Signs Reviewed: Yes Eye Exam: Normal ENT: Positive: Pharyngeal erythema, Nasal congestion, Other - PND Dental Exam: Normal Neck exam: Normal Respiratory Exam: Normal Respiratory: Positive: Normal breath sounds Cardiovascular Exam: Normal Musculoskeletal Exam: Normal Neurological Exam: Normal Psychological Exam: Normal Skin Exam: Normal Throat Pain/Nasal Course/Dx - Differential Dx/Diagnosis Differential Diagnosis/HQI/PQRI: Influenza, Pharyngitis, Tonsillitis Provider Diagnosis: Viral syndrome Discharge ED - Sign-Out/Discharge Documenting (check all that apply): Patient Departure All imaging exams completed and their final reports reviewed: No Studies - Discharge Plan Condition: Stable Disposition: HOME Patient Education Materials: Decongestant/Expectorant (By mouth), Viral Syndrome (ED) Forms: *Work Release Referrals: [facility] [place] PHYSICIAN REFERRAL [Outside] - If Needed No Primary Care Phys,NOPCP [Primary Care Provider] - - Billing Disposition and Condition Condition: STABLE Disposition: Home
== END 2019-06-30 10:27 | disposition home or self-care (01) ==
LOC: UCCORT 09:02
DX: B34.9 Viral infection, unspecified (principal)
CPT/HCPCS: 87651; 99211; G0463

== ENCOUNTER 2019-09-12 12:24 | Emergency (ER) | payer OTHER ==
[2019-09-12 12:58] VITALS: BP 113/61
--- NOTE | 2019-09-12 13:45 | UC ---
Knee Pain HPI - HPI Summary HPI Summary: 34-year-old female comes in with chief complaint of right knee pain. Patient reports she's had right knee pain for months. Gradually been getting worse. Over the last several weeks now the pain is radiating down into the lower leg and she's getting some swelling and numbness occasionally in the lower leg on the right side. The pain is worse with movement and ambulation. Decreases with rest. She has no history of DVT she is not a smoker. No recent travel. No complaint of chest pain or shortness of breath. She is not on any estrogens. - History of Current Complaint Chief Complaint: UCLowerExtremity Stated Complaint: RT KNEE INJURY Time Seen by Provider: 09/12/19 13:44 Hx Last Menstrual Period: end of 07/2019 Pain Intensity: 9 - Allergies/Home Medications Allergies/Adverse Reactions: Allergies Allergy/AdvReac Type Severity Reaction Status Date / Time No Known Allergies Allergy Verified 09/12/19 12:52 Home Medications: Home Medications Acetaminophen [Tylenol Extra Strength] 1,000 mg PO ONCE 09/12/19 [History Confirmed 09/12/19] Ibuprofen TAB* [Motrin TAB* 800 MG] 800 mg PO ONCE 09/12/19 [History Confirmed 09/12/19] PMH/Surg Hx/FS Hx/Imm Hx Previously Healthy: Yes Other History Of: Negative For: HIV, Hepatitis B, Hepatitis C, Anticoagulant Therapy - Surgical History Surgical History: Yes Surgery Procedure, Year, and Place: D&C. E-sure procedure - Family History Known Family History: Positive: None, Diabetes Negative: Cardiac Disease, Hypertension, Respiratory Disease, Seizure Disorder - Social History Alcohol Use: Occasionally Substance Use Type: None Smoking Status (MU): Never Smoked Tobacco Have You Smoked in the Last Year: No - Immunization History Most Recent Influenza Vaccination: no Most Recent Tetanus Shot: UTD Most Recent Pneumonia Vaccination: NONE Vaccination Up to Date: Yes Review of Systems All Other Systems Reviewed And Are Negative: Yes Constitutional: Positive: Negative Skin: Positive: Negative Eyes: Positive: Negative ENT: Positive: Negative Respiratory: Positive: Negative Cardiovascular: Positive: Negative Gastrointestinal: Positive: Negative Motor: Positive: Negative Neurovascular: Positive: Decreased Sensation - see hpi Musculoskeletal: Positive: Other: - see hpi Neurological: Positive: Paresthesia - see hpi Psychological: Positive: Negative Is Patient Immunocompromised?: No Physical Exam Triage Information Reviewed: Yes Appearance: Well-Appearing, Well-Nourished, Pain Distress - mild with rom/ ambulation and exam of rt knee Vital Signs: Initial Vital Signs Temp 98.2 F 09/12/19 12:53 Pulse 87 09/12/19 12:53 Resp 15 09/12/19 12:53 BP 113/61 09/12/19 12:53 Pulse Ox 100 09/12/19 12:53 Vital Signs Reviewed: Yes Eye Exam: Normal Eyes: Positive: Conjunctiva Clear Neck: Positive: Supple Respiratory: Positive: No respiratory distress Musculoskeletal: Positive: Other: - Right knee has an effusion. It's tender palpation circumferentially. Tenderness is worse in the anterior aspect. It's stable to exam. Patient gets pain with bilateral Tesha's. Patient has distal edema and patient reports tenderness to palpation anywhere in the anterior or posterior lower leg. Normal capillary refill normal sensation on my examination. Neurological: Positive: Alert Psychological: Positive: Age Appropriate Behavior Skin Exam: Normal Knee Pain Course/Dx - Course Course Of Treatment: Payroll Secretary: Chinedu Urrutia Daniel, ([id number]) Pig Machine Operator Helper: NICK ( NICK) Report Date: 09/12/2019 13:29:00 Report Status: Final ====== Start of Report Content Patient Name: KYLE MAN Medical Record#: [id number] Ordering Physician: Fidel Michaud MD Acct.#: [id number] : Age: 34 Sex: F Location: [facility] Exam Date: 09/12/19 125 ADM Status: REG ER Order Information: KNEE RIGHT 4+ VWS Accession Number: [id number] CPT: 75564 HISTORY: PAIN . Right knee pain COMPARISONS: June VIEWS: 4, Frontal, lateral, axial, and oblique views of the right knee FINDINGS: BONE DENSITY: Normal. BONES: There is no displaced fracture. JOINTS: There is no arthropathy. There is no suprapatellar joint effusion or lipohemarthrosis. ALIGNMENT: There is no dislocation. SOFT TISSUES: Unremarkable. OTHER FINDINGS: None. IMPRESSION: NO ACUTE OSSEOUS INJURY. IF SYMPTOMS PERSIST, RECOMMEND REPEAT IMAGING. <Electronically signed by Chinedu Urrutia MD in OV > 09/12/191325 Dictated By: Chinedu Urrutia MD Dictated Date/Time: 1324 Transcribed Date/Time: 09/12/191324 Copy to: CC:[facility]; Juan PARDO; Fidel Michaud MD Imaging - [facility] [address] [place] [address] ph [phone]) ph ([phone]) ph ([phone]) End of Report Content ==== I discussed the x-rays with the patient. The chronology of symptoms was months of knee pain and knee swelling and then in the last couple of weeks she has lower leg pain and swelling. Patient is circumferentially tender of the knee and the lower extremity on examination. Patient has no history of DVT. She's not on estrogen she is not a smoker. Her oxygen saturation is normal. We discussed the possibility of a DVT. At the time the patient was here in clinic we do not have ultrasound available. I discussed this with the patient and let her know that the [place] emergency department has ultrasound and we also have ultrasound during the mornings Tuesday through Tuesday. At this time the patient prefers to follow-up with orthopedics or sports medicine to further evaluate the knee and also reevaluate whether or not the ultrasound is necessary. If the patient worsens at all she is to get reevaluated again right away. - Differential Dx/Diagnosis Provider Diagnosis: Right knee pain, Knee effusion, right Discharge ED - Sign-Out/Discharge Documenting (check all that apply): Patient Departure All imaging exams completed and their final reports reviewed: Yes - Discharge Plan Condition: Stable Disposition: HOME Patient Education Materials: Swollen Knee Joint (ED), Knee Pain (ED) Referrals: Juan Moss PA [Primary Care Provider] - [facility] [Provider Group] Chente Hamilton MD [Medical Doctor] - Additional Instructions: FOLLOW UP WITH DR HAMILTON, ORTHOPEDICS, OR SPORTS MEDICINE. Your calf pain and swelling is most probably due to your knee swelling. However we have not ruled out a deep venous thrombosis. To rule out a deep venous thrombosis an ultrasound is required which we do not have available at this time in our clinic. We have ultrasound available in this clinic Tuesday through Tuesday in the mornings. The [place] emergency department has ultrasound capabilities also. GET REEVALUATED SOONER IF NOT IMPROVING OR GO TO THE EMERGENCY DEPARTMENT IF WORSE OR ANY QUESTIONS OR CONCERNS. - Billing Disposition and Condition Condition: STABLE Disposition: Home
== END 2019-09-12 14:26 | disposition home or self-care (01) ==
LOC: UCCORT 12:24
DX: M25.561 Pain in right knee (principal); M25.461 Effusion, right knee
CPT/HCPCS: 99213; G0463